=== PATIENT | male | born 1970 | race Caucasian/White ===

== ENCOUNTER 2020-11-08 02:06 | Day surgery (SDC) | payer OTHER, SELFPAY ==
[2020-10-28 08:36] VITALS: BMI 46.9
--- NOTE | 2020-11-08 07:50 | P.PNAN_ITS ---
Anes - Initial Pre Proc Eval Procedure: Operation Date: 11/08/20 10:30 Proposed Procedures p Screening Colonoscopy - Leonardo Car MD Date/Time: 11/08/20 07:50 Surgeon: Leonardo Car MD Pre Op Diagnosis: neoplasm screening Patient Data Age: 50 Gender: M Height: 1.73 m Weight: 140 kg Allergies Allergy/AdvReac Type Severity Reaction Status Date / Time No Known Allergies Allergy Verified 11/08/20 09:42 Home Medications Medication Instructions Recorded Confirmed Type omega-3 fatty acids 1,000 mg 1,000 mg PO DAILY #30 cap 01/02/19 10/27/20 Rx capsule metformin 500 mg tablet,extended 500 mg PO DAILY #90 tablet 10/01/20 10/27/20 Rx release 24 hr rosuvastatin 40 mg tablet 40 mg PO DAILY #90 tablet 10/01/20 10/27/20 Rx testosterone 20.25 mg/1.25 gram 2 pump TOPICAL DAILY #75 g 10/11/20 10/27/20 Rx (1.62 %) transdermal gel pump Patient hx anesthesia problems: none Family hx anesthesia problems: none [facility] Past Medical History Medical History (Updated 11/08/20 @ 07:51 by Mauricio Butler MD) BMI 45.0-49.9, adult Diabetes BLACK (obstructive sleep apnea) Other and unspecified hyperlipidemia Prediabetes Family History Family History Father Acute myocardial infarction Mother Family history of diabetes mellitus in first degree relative Family history of malignant neoplasm of breast in first degree relative Social History Social History (Updated 10/01/20 @ 13:05 by Sandra Narvaez CNA) Smoking status: Never smoker Second hand tobacco smoke exposure: Yes Alcohol intake: never Substance use: never Substance use type: does not use Anes - Eval Final PreProcedure Day of Procedure 11/08/20 07:50 Patient weight: obese Heart: regular rate and rhythm Lungs: clear to auscultation and normal air movement Airway: Mallampati scale class II Neurological: alert and oriented Last oral intake: >/= 8 hours ASA classification: III Emergent: no Anesthetic plan: proceed Anesthesia type and monitoring: general GIVS Informed Consent: The patient's anesthetic plan and its attendant risks and benefits were discussed with the patient/family/POA. Questions were solicited and answers provided to the satisfaction of the patient/family/POA.
[2020-11-08 09:43] VITALS: BP 140/84; PULSE 84; RESP 20; TEMP 36.8; O2SAT 98; BMI 47.2
[2020-11-08 10:01] LABS: Glucose Point of Care 163 mg/dl (65-105)
[2020-11-08] MEDS: LACTATED RINGERS 1,000 ML 150 ML IV CONT (10:02)
--- NOTE | 2020-11-08 10:34 | PM.HPGS ---
History of Present Illness History of Present Illness Consent: Risks, benefits, and alternatives have been discussed and questions answered. Patient agrees to proceed with procedure. Chief complaint: neoplasm screening Narrative: Lex Davis is a 50 year old male here for first screening colonoscopy Review of Systems Constitutional: Constitutional: Denies headache(s) and Denies weakness Eyes: Eyes: Denies blurry vision ENT: Reports Normal hearing present, Denies headache(s) and Denies neck pain Cardiovascular: Cardiovascular: Denies chest pain and Denies dyspnea Respiratory: Respiratory: Denies dyspnea Gastrointestinal: Gastrointestinal: Reports no additional gastrointestinal complaints Genitourinary: Genitourinary: Denies dysuria Musculoskeletal: Musculoskeletal: Denies neck pain Integumentary/Breasts: Skin/Breast: Denies dry skin Neurologic: Reports Normal hearing present, Denies headache(s) and Denies weakness Psychiatric: Psychiatric: Denies anxiety Endocrine: Endocrine: Denies change in body appearance Hematologic/Lymphatic: Hematologic/Lymphatic: Denies easy bleeding Allergic/Immunologic: Allergic/Immunologic: Denies urticaria [facility] Past Medical History Medical History (Updated 11/08/20 @ 10:35 by Leonardo Car MD) BMI 45.0-49.9, adult Colon cancer screening Diabetes BLACK (obstructive sleep apnea) Other and unspecified hyperlipidemia Prediabetes Family History Family History Father Acute myocardial infarction Mother Family history of diabetes mellitus in first degree relative Family history of malignant neoplasm of breast in first degree relative Social History Social History (Updated 10/01/20 @ 13:05 by Sandra Narvaez CNA) Smoking status: Never smoker Second hand tobacco smoke exposure: Yes Alcohol intake: never Substance use: never Substance use type: does not use Meds Home Medications and Allergies Home Medications Medication Instructions Recorded Confirmed Type omega-3 fatty acids 1,000 mg 1,000 mg PO DAILY #30 cap 01/02/19 10/27/20 Rx capsule metformin 500 mg tablet,extended 500 mg PO DAILY #90 tablet 10/01/20 10/27/20 Rx release 24 hr rosuvastatin 40 mg tablet 40 mg PO DAILY #90 tablet 10/01/20 10/27/20 Rx testosterone 20.25 mg/1.25 gram 2 pump TOPICAL DAILY #75 g 10/11/20 10/27/20 Rx (1.62 %) transdermal gel pump Allergies Allergy/AdvReac Type Severity Reaction Status Date / Time No Known Allergies Allergy Verified 11/08/20 09:42 Vital Signs Vital Signs - 24 hr 11/08/20 09:43 Temperature 98.2 F Pulse Rate 84 Respiratory Rate 20 Blood Pressure 140/84 Pulse Oximetry 98 Exam Const: General: comfortable and no acute distress HENMT: General nose exam: Normal nares present Eyes: General: appearance normal, both eyes and all related structures Neck: Neck: no JVD Resp: Auscultation: clear to auscultation bilaterally Cardio: Rate: regular rate Rhythm: regular rhythm GI: Inspection: non-distended GI Palp: Yes Soft to palpation Skin: General skin exam: normal color Neuro: General: gait normal Speech: normal speech Extrem: General: normal to inspection Psych: Mental Status: mental status grossly normal Assessment and Plan Assessment and plan (1) Colon cancer screening: Code(s): Z12.11 - Encounter for screening for malignant neoplasm of colon Status: Acute Assessment and Plan: colonoscopy
[2020-11-08 11:01] VITALS: BP 119/76; PULSE 69; RESP 14; O2SAT 93
[2020-11-08 11:11] VITALS: BP 115/70; PULSE 86; RESP 21; O2SAT 95
[2020-11-08 11:21] VITALS: BP 115/71; PULSE 58; RESP 18; O2SAT 96
== END 2020-11-08 11:30 | disposition home or self-care (01) ==
PROVIDERS: PCP Internal Medicine; Visit Provider Internal Medicine Gastroenterology
PROC: 0DJD8ZZ Inspection of Lower Intestinal Tract, Via Natural or Artificial Opening Endoscopic (ICD-10-PCS; CPT 45378; principal; 2020-11-08 10:30)
DX: Z12.11 Encounter for screening for malignant neoplasm of colon (principal); D12.0 Benign neoplasm of cecum; K63.5 Polyp of colon; K57.30 Diverticulosis of large intestine without perforation or abscess without bleeding; E11.9 Type 2 diabetes mellitus without complications; E78.5 Hyperlipidemia, unspecified; G47.33 Obstructive sleep apnea (adult) (pediatric)
CPT/HCPCS: 45385; 45380; 82948; 88305; J2704; J7120

== ENCOUNTER 2023-02-05 00:49 | Day surgery (SDC) | payer OTHER, SELFPAY ==
[2023-01-22 15:09] VITALS: BMI 47.0
--- NOTE | 2023-02-02 10:44 | SUR.PREOP ---
Patient called regarding upcoming procedure. Reviewed preop instructions, appointment times, and procedure prep.
[2023-02-05 09:12] VITALS: BP 130/78; PULSE 60; RESP 18; TEMP 36.3; O2SAT 98
[2023-02-05] MEDS: LACTATED RINGERS 1,000 ML 150 ML IV CONT (09:19)
[2023-02-05 09:29] LABS: Glucose Point of Care 151 mg/dl (65-105)
--- NOTE | 2023-02-05 09:44 | WPDANESEPPF ---
Anes - Initial Pre Proc Eval Procedure: Operation Date: 02/05/23 10:30 Proposed Procedures p Colonoscopy - Leonardo Car MD Date/Time: 02/05/23 09:44 Surgeon: Leonardo Car MD Pre Op Diagnosis: hx of colon polyps Patient Data Age: 52 Gender: M Height: 1.73 m Weight: 140.6 kg Last Vital Signs Temp 97.4 F L 02/05/23 09:12 Pulse 60 02/05/23 09:12 Resp 18 02/05/23 09:12 BP 130/78 02/05/23 09:12 Pulse Ox 98 02/05/23 09:12 O2 Del Method Room Air 02/05/23 09:12 Allergies Allergy/AdvReac Type Severity Reaction Status Date / Time No Known Allergies Allergy Verified 02/05/23 09:10 Home Medications Medication Instructions Recorded Confirmed Type omega-3 fatty acids 1,000 mg 1,000 mg PO DAILY #30 caps 01/02/19 02/05/23 Rx capsule losartan 25 mg tablet 25 mg PO DAILY #90 tabs 11/17/22 02/05/23 Rx metformin 500 mg tablet 500 mg PO BIDWMEAL #180 tabs 11/17/22 02/05/23 Rx rosuvastatin 40 mg tablet 40 mg PO DAILY hyperlipidemia #90 11/17/22 02/05/23 Rx tabs sildenafil 100 mg tablet 100 mg PO DAILY PRN sexual 11/17/22 02/05/23 Rx activity #30 tabs testosterone (AndroGel) 3 pump topical DAILY #75 grams 11/17/22 02/05/23 Rx Laboratory Tests 02/05/23 09:21 POC Capillary Glucose 151 H mg/dl (65-105) Patient hx anesthesia problems: none Family hx anesthesia problems: none Results Review: All pre-operative results and documents have been reviewed as part of the pre-operative evaluation. [facility] Past Medical History Medical History (Updated 11/17/22 @ 07:59 by Sunny Arrington APRN) BMI 45.0-49.9, adult Colon cancer screening Diabetes BLACK (obstructive sleep apnea) Other and unspecified hyperlipidemia Prediabetes Family History Family History Father Acute myocardial infarction Mother Family history of diabetes mellitus in first degree relative Family history of malignant neoplasm of breast in first degree relative Social History Social History (Updated 11/17/22 @ 07:28 by Eileen England MA) Smoking status: Former smoker Tobacco type: smokeless tobacco Smokeless tobacco user: chewing tobacco Second hand tobacco smoke exposure: Yes Alcohol intake: never Substance use: never Substance use type: does not use Lack of Transportation: No Lack of Food: Never True Current Housing: I Have Housing Concerned About Future Housing: No Difficulty Paying Gas/Electric Bills: No Difficulty Paying for Meds: No Currently Unemployed: No Education: Trade/Vocational Certificate Difficulty w/ Childcare or Family Care: No Living arrangements: with family Spiritual care concerns: No Anes - Eval Final PreProcedure Day of Procedure 02/05/23 09:44 Patient weight: morbidly obese Heart: regular rate and rhythm Lungs: clear to auscultation Airway: Mallampati scale class III Neurological: alert and oriented Last oral intake: >/= 8 hours ASA classification: III Emergent: no Anesthetic plan: proceed Anesthesia type and monitoring: general GIVS and standard monitoring Results Review: All pre-operative results and documents have been reviewed as part of the pre-operative evaluation. Informed Consent: The patient's anesthetic plan and its attendant risks and benefits were discussed with the patient/family/POA. Questions were solicited and answers provided to the satisfaction of the patient/family/POA.
--- NOTE | 2023-02-05 10:02 | PM.HPGS ---
History of Present Illness History of Present Illness Consent: Risks, benefits, and alternatives have been discussed and questions answered. Patient agrees to proceed with procedure. Chief complaint: hx of colon polyps Narrative: Lex Davis is a 52 year old male with colon polyps in 2020 Review of Systems Constitutional: Constitutional: Denies headache(s) and Denies weakness Eyes: Eyes: Denies blurry vision ENT: Reports Normal hearing present, Denies headache(s) and Denies neck pain Cardiovascular: Cardiovascular: Denies chest pain and Denies dyspnea Respiratory: Respiratory: Denies dyspnea Gastrointestinal: Gastrointestinal: Reports no additional gastrointestinal complaints Genitourinary: Genitourinary: Denies dysuria Musculoskeletal: Musculoskeletal: Denies neck pain Integumentary/Breasts: Skin/Breast: Denies dry skin Neurologic: Reports Normal hearing present, Denies headache(s) and Denies weakness Psychiatric: Psychiatric: Denies anxiety Endocrine: Endocrine: Denies change in body appearance Hematologic/Lymphatic: Hematologic/Lymphatic: Denies easy bleeding Allergic/Immunologic: Allergic/Immunologic: Denies urticaria [facility] Past Medical History Medical History (Updated 11/17/22 @ 07:59 by Sunny Arrington APRN) BMI 45.0-49.9, adult Colon cancer screening Diabetes BLACK (obstructive sleep apnea) Other and unspecified hyperlipidemia Prediabetes Family History Family History Father Acute myocardial infarction Mother Family history of diabetes mellitus in first degree relative Family history of malignant neoplasm of breast in first degree relative Social History Social History (Updated 11/17/22 @ 07:28 by Eileen England MA) Smoking status: Former smoker Tobacco type: smokeless tobacco Smokeless tobacco user: chewing tobacco Second hand tobacco smoke exposure: Yes Alcohol intake: never Substance use: never Substance use type: does not use Lack of Transportation: No Lack of Food: Never True Current Housing: I Have Housing Concerned About Future Housing: No Difficulty Paying Gas/Electric Bills: No Difficulty Paying for Meds: No Currently Unemployed: No Education: Trade/Vocational Certificate Difficulty w/ Childcare or Family Care: No Living arrangements: with family Spiritual care concerns: No Meds Home Medications and Allergies Home Medications Medication Instructions Recorded Confirmed Type omega-3 fatty acids 1,000 mg 1,000 mg PO DAILY #30 caps 01/02/19 02/05/23 Rx capsule losartan 25 mg tablet 25 mg PO DAILY #90 tabs 11/17/22 02/05/23 Rx metformin 500 mg tablet 500 mg PO BIDWMEAL #180 tabs 11/17/22 02/05/23 Rx rosuvastatin 40 mg tablet 40 mg PO DAILY hyperlipidemia #90 11/17/22 02/05/23 Rx tabs sildenafil 100 mg tablet 100 mg PO DAILY PRN sexual 11/17/22 02/05/23 Rx activity #30 tabs testosterone (AndroGel) 3 pump topical DAILY #75 grams 11/17/22 02/05/23 Rx Allergies Allergy/AdvReac Type Severity Reaction Status Date / Time No Known Allergies Allergy Verified 02/05/23 09:10 Vital Signs Vital Signs - 24 hr 02/05/23 09:12 Temperature 97.4 F L Pulse Rate 60 Respiratory Rate 18 Blood Pressure 130/78 Pulse Oximetry 98 Oxygen Delivery Room Air Exam Const: General: comfortable and no acute distress HENMT: Face/Nose/Sinus: Normal nares present Eyes: General: appearance normal, both eyes and all related structures Neck: Neck: no JVD Resp: Auscultation: clear to auscultation bilaterally Cardio: Rate: regular rate Rhythm: regular rhythm GI: Inspection: non-distended GI Palp: Yes Soft to palpation Skin: General skin exam: normal color Neuro: General: gait normal Speech: normal speech Extrem: General: normal to inspection Psych: Mental Status: mental status grossly normal Assessment and Plan Assessment and plan (1) History
[2023-02-05 10:24] VITALS: BP 126/90; PULSE 65; RESP 22; O2SAT 100
[2023-02-05 10:34] VITALS: BP 114/74; PULSE 60; RESP 16; O2SAT 100
[2023-02-05 10:44] VITALS: BP 110/73; PULSE 62; RESP 18; O2SAT 100
== END 2023-02-05 10:53 | disposition home or self-care (01) ==
PROVIDERS: PCP Nurse Practitioner; Visit Provider Internal Medicine Gastroenterology
PROC: 0DJD8ZZ Inspection of Lower Intestinal Tract, Via Natural or Artificial Opening Endoscopic (ICD-10-PCS; CPT 45378; principal; 2023-02-05 10:30)
DX: Z12.11 Encounter for screening for malignant neoplasm of colon (principal); K63.5 Polyp of colon; K57.30 Diverticulosis of large intestine without perforation or abscess without bleeding; E11.9 Type 2 diabetes mellitus without complications; G47.33 Obstructive sleep apnea (adult) (pediatric); E78.5 Hyperlipidemia, unspecified; F17.220 Nicotine dependence, chewing tobacco, uncomplicated; E66.01 Morbid (severe) obesity due to excess calories; Z68.42 Body mass index [BMI] 45.0-49.9, adult; Z79.84 Long term (current) use of oral hypoglycemic drugs; Z82.49 Family history of ischemic heart disease and other diseases of the circulatory system; Z80.3 Family history of malignant neoplasm of breast
CPT/HCPCS: 45385; 82948; 88305; J2704; J7120